=== PATIENT | female | born 1985 | race Caucasian/White ===

== ENCOUNTER 2018-01-09 08:22 | Emergency (ER) | payer MEDICAID, SELFPAY ==
[2018-01-09 08:29] VITALS: BP 110/75; PULSE 75; RESP 16; TEMP 36.8; O2SAT 94
--- NOTE | 2018-01-09 08:56 | DI.US_ITS ---
SYMPTOM/DIAGNOSIS: BILAT LOWER EXT SWELLING, ? DVT BILATERAL LOWER EXTREMITY ULTRASOUND: The femoral and popliteal veins and visualized calf veins are freely compressible. No thrombus is visible. There is no evidence of superficial thrombophlebitis or Krause's cyst. IMPRESSION: Negative bilateral lower extremity ultrasound. No evidence of DVT.
[2018-01-09] MEDS: Furosemide 20 MG TAB PO (08:59)
[2018-01-09 09:08] VITALS: RESP 16
[2018-01-09 09:13] LABS: Bilirubin Negative (Negative); Blood Negative (Negative); Clarity Sl Cloudy; Glucose Negative (Negative); Ketones Negative (Negative); Leukocyte Esterase Negative (Negative); Nitrite Negative (Negative)
--- NOTE | 2018-01-09 10:25 | W.ED.GENAD ---
Discharge Plan Disposition Patient Disposition: HOME Condition: Good Discharge Details Chief Complaint: Vascular Clinical Impression: Bilateral edema of lower extremity Primary Care Provider: None,None ED Provider: Jr Snow Home Meds and New Rx's Prescriptions: New furosemide [Lasix] 20 mg tablet 20 mg PO DAILY Qty: 5 RF: 0 No Action methadone 10 mg/mL Concentrate 50 mg PO DAILY RF: 0 Discharge Instructions Instructions: Edema (ED) Additional Instructions: Please avoid salty foods, please take the Lasix as directed. Please use [id number] compression stockings as often as possible. If you notice any worsening of your symptoms, or any new symptoms such as vomiting, diarrhea, fever, chills, shortness of breath, chest pain, numbness, weakness, or fainting , please return immediately to the emergency department for reevaluation. Please follow up with your primary care provider as soon as possible for reassessment and reevaluation. As always, it was a pleasure participating in your medical care today. Medical Decision Making This is a 32-year-old female who presents for evaluation of swelling for lower extremities. Physical exam demonstrates +1 +2 pitting edema bilaterally. She denies any history of thyroid disease and shows no evidence of goiter on exam. She has no history of clots or risk factors for blood clot. She states that she has had swelling like this in the past when she was on Suboxone, and stopped that with mild improvement of her symptoms and then started on methadone, and the swelling came back again. Differential at this time include DVT versus iatrogenic swelling secondary to the methadone. We will give the patient some Lasix, evaluate for DVT, check for any proteinuria. 12:15 PM Ultrasound of the lower extremities demonstrates no evidence of DVT per ultrasonography and radiology. No evidence of proteinuria on urinalysis. With no evidence of blood clot, no evidence of proteinuria, and no other significant abnormalities I feel that the patient would benefit from a short run of Lasix on an outpatient basis. Discussed with her the importance of close PCP follow-up. We discussed red flags which to return. I have extensively reviewed the treatment plan and discharge instructions with the patient. I have addressed all patient concerns at this time. The patient was made aware of what symptoms to monitor for that would warrant a return to the emergency department. Discussed the plan with the patient, they demonstrate verbal understanding and agreement with our assessment and plan at this time. HPI General Date/Time Provider Initiated Documentation: 01/09/18 08:55. HPI Narrative: This is a 32-year-old female with past medical history of previous substance abuse who is currently on methadone. She presents today with a chief complaint of swelling in her lower extremities. Patient states that she has been on Suboxone in the past which caused notable swelling in her lower extremities, and so she recently switched to methadone but she still has continued swelling in her lower extremities. She had had the swelling for the past 2 months. It is improved by nothing. It is worse in the morning, and she states that she has general mild pain in her lower extremity secondary to this. Denies PE risk factors such as recent long car rides, immobilization, recent surgery, prior history of DVT or PE, family history of PE or DVT, morbid obesity, exogenous estrogen and smoking, hemoptysis, history of cancer. She denies any other modifying or relieving factors. She denies any other complaints at this time. She denies any chest pain, shortness of breath, numbness, tingling, weakness. Related Data Home Medications Medication Instructions Recorded Confirmed furosemide [Lasix] 20 mg PO DAILY #5 tab 01/09/18 methadone 50 mg PO DAILY 01/09/18 01/09/18 Previous Rx's Medication Instructions Recorded furosemide [Lasix] 20 mg PO DAILY #5 tab 01/09/18 Allergies Allergy/AdvReac Type Severity Reaction Status Date / Time No Known Allergies Allergy Unverified 01/09/18 08:34 General Stated Complaint: Vascular RAYO: 4 Review of Systems Review of Systems All systems reviewed & are unremarkable except as noted in HPI and below [facility] Social History Smoking/Tobacco Use Status: Current, status unknown Exam Narrative Exam Narrative: 1.Const: Well-nourished, Well-developed, appearing stated age 2.Eyes: PERRL, no conjunctival injection, and symmetrical lids. 3.ENT: Atraumatic external nose and ears. Moist MM. Neck: Symmetric, trachea midline, No thyromegaly. No evidence of goiter 4.CVS: +S1/S2, No murmurs or gallops. Peripheral pulses 2+ and equal in all extremities. Brisk capillary refill in all extremities. 5.RESP: Unlabored respiratory effort. Clear to auscultation bilaterally. No wheezes rales or rhonchi 6.GI: Soft, Nontender/Nondistended, No hepatosplenomegaly. No guarding or rebound. 7.MSK: Normocephalic/Atraumatic, Extremities w/o deformity. No cyanosis or clubbing, Normal movement of all extremities. Patient demonstrates +1-+2 pitting edema in her lower extremities bilaterally with mild tenderness, in her calves in the anterior components. Dorsalis pedis is +2 bilaterally. Wrist capillary refill. 8.Skin: Warm, Dry. No rashes or lesions. 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 Sensation grossly intact, no focal neurologic deficits. 10.Psych: (AAO) x3. Appropriate mood and affect Course Vital Signs Temperature 36.8 C 01/09/18 08:29 Pulse 75 01/09/18 08:29 Respiratory Rate 16 01/09/18 08:29 Blood Pressure 110/75 01/09/18 08:29 Pulse Oximetry 94 L 01/09/18 08:29 Temperature 36.8 C 01/09/18 08:29 Temperature Source Temporal Artery Scan 01/09/18 08:29 Pulse 75 01/09/18 08:29 Respiratory Rate 16 01/09/18 09:08 Respiratory Effort Non-Labored 01/09/18 09:08 Respiratory Depth Normal 01/09/18 09:08 Blood Pressure 110/75 01/09/18 08:29 Blood Pressure Position Sitting 01/09/18 08:29 Pulse Oximetry 94 L 01/09/18 08:29 Oxygen Delivery Method Room Air 01/09/18 08:29 Oxygen Flow Rate 0 01/09/18 08:29 Pain Level 0 01/09/18 09:08 Lab/Test Results Lab/Test Results: Laboratory Tests Range/Units 01/09/18 09:00 Urine Color (Yellow) Yellow Urine Clarity Sl cloudy Urine pH (5-8) 7.0 Ur Specific [place] (1.005-1.025) 1.020 Urine Protein (Negative) mg/dL Negative Urine Ketones (Negative) mg/dL Negative Urine Blood (Negative) Negative Urine Nitrite (Negative) Negative Urine Bilirubin (Negative) Negative Urine Urobilinogen (Up TO 0.2) EU/dL 1.0 H Ur Leukocyte Esterase (Negative) Negative Urine Glucose (Negative) mg/dL Negative POC- Test(urine) Negative
[2018-01-09 12:33] VITALS: BP 110/71; PULSE 69; RESP 15; TEMP 37.3; O2SAT 96
== END 2018-01-09 12:38 | disposition home or self-care (01) ==
PROVIDERS: Emergency Provider Student in an Organized Health Care Education/Training Program
DX: R60.0 Localized edema (principal)
CPT/HCPCS: 81025; 99284; 81003; 93970